=== PATIENT | female | born 1965 | race Caucasian/White ===

== ENCOUNTER 2017-04-20 06:47 | Inpatient (IN) | payer OTHER ==
[~2017-04-20] VITALS: Ht 167.6 cm; Wt 66.7 kg
[2017-04-20] MEDS ORDERED: THROMBIN 5,000 UNIT VIAL TP ONE (06:55)
[2017-04-20] MEDS ORDERED: BACITRACIN 50,000 UNIT ONE (06:55)
[2017-04-20] MEDS ORDERED: BUPIVACAINE/PF-EPI 0.5% 1:200K ONE (06:55)
[2017-04-20] MEDS ORDERED: LIDOCAINE 1%, 2ML ONE (07:07)
[2017-04-20] MEDS ORDERED: LACTATED RINGERS 1,000 ML IV SCH (07:12)
[2017-04-20] MEDS ORDERED: LIDOCAINE 1%, 2ML SQ PRN (08:00)
[2017-04-20] MEDS ORDERED: GADOBUTROL 7.5 MMOL/7.5 ML PFS ONE (08:28)
[2017-04-20] MEDS ORDERED: PROGESTERONE CREAM TP (08:55)
[2017-04-20] MEDS ORDERED: MULT-208 PO (08:55)
[2017-04-20] MEDS ORDERED: FEXO60TA24 PO (08:55)
[2017-04-20] MEDS ORDERED: ACET325T14 PO (08:55)
[2017-04-20] MEDS ORDERED: DEXAMETHASONE PO (08:55)
[2017-04-20] MEDS ORDERED: IBUP200T5 PO (08:55)
[2017-04-20] MEDS ORDERED: FLUT9.9S INH (08:55)
[2017-04-20 08:58] VITALS: BP 137/85
[2017-04-20] MEDS ORDERED: ALBU18HF INH (09:22)
[2017-04-20] MEDS ORDERED: FENTANYL PF 250 MCG/5ML ONE (09:39)
[2017-04-20] MEDS ORDERED: MIDAZOLAM 1 MG/ML, 2ML ONE (09:39)
[2017-04-20] MEDS ORDERED: PROPOFOL 10 MG/ML, 20ML ONE (09:42)
[2017-04-20] MEDS ORDERED: SUCCINYLCHOLINE 20 MG/ML, 10ML ONE (09:42)
[2017-04-20] MEDS ORDERED: ROCURONIUM 10 MG/ML ONE (09:42)
[2017-04-20] MEDS ORDERED: CEFAZOLIN 1,000 MG ONE (09:42)
[2017-04-20] MEDS ORDERED: ONDANSETRON 2MG/ML, 2ML ONE (09:42)
[2017-04-20] MEDS ORDERED: DEXAMETHASONE 4 MG/ML, 1ML ONE (09:42)
[2017-04-20] MEDS ORDERED: PHENYLEPHRINE 10 MG/ML ONE (09:42)
[2017-04-20] MEDS ORDERED: THROMBIN 20,000 UNIT VIAL TP ONE (10:29)
[2017-04-20] MEDS ORDERED: ONDANSETRON 2MG/ML, 2ML IVPush PRN (11:00)
[2017-04-20] MEDS ORDERED: ALBUTEROL SULFATE 2.5 MG/3 ML NPPB PRN (11:00)
[2017-04-20] MEDS ORDERED: FENTANYL PF 100 MCG/2ML IV PRN (11:00)
[2017-04-20] MEDS ORDERED: PROMETHAZINE 25 MG/ML, 1ML IV PRN (11:00)
[2017-04-20] MEDS ORDERED: hydrALAzine 20 MG/ML, 1ML IV PRN ×2 (11:00→13:00)
[2017-04-20] MEDS ORDERED: HYDROmorphone 1 MG/ML, 1ML IV PRN (11:00)
[2017-04-20] MEDS ORDERED: OXYcodone 5 MG/5 ML ORAL.SOL UDC PO PRN (11:00)
[2017-04-20] MEDS ORDERED: MIDAZOLAM 1 MG/ML, 2ML IV PRN (11:00)
[2017-04-20] MEDS ORDERED: ACETAMINOPHEN 325 MG TABLET PO PRN (11:00)
[2017-04-20] MEDS ORDERED: MEPERIDINE/PF 25MG/0.5ML IVPush PRN (11:00)
[2017-04-20] MEDS ORDERED: LABETALOL 5MG/ML, 20ML IV PRN (11:00)
[2017-04-20] MEDS ORDERED: LEVETIRACETAM 2,000 MG in SODIUM CHLORIDE 0.9% 100 ML IV ONE (12:00)
[2017-04-20] MEDS ORDERED: BACITRACIN OINT 500U/GM, 15 GM ONE (12:20)
[2017-04-20] MEDS ORDERED: MAGNESIUM HYDROXIDE 8%, 30ML UDC PO PRN (13:00)
[2017-04-20] MEDS ORDERED: HYDROcodone/APAP 5/325 TABLET PO PRN (13:00)
[2017-04-20] MEDS ORDERED: ENALAPRILAT 1.25 MG/ML, 2ML IV PRN (13:00)
[2017-04-20] MEDS ORDERED: BISACODYL 10 MG SUPP PR PRN (13:00)
[2017-04-20] MEDS ORDERED: OXYcodone/APAP 5/325MG TABLET PO PRN (13:00)
[2017-04-20] MEDS: NS + 20MEQ KCL 1,000 ML IV SCH (15:27)
[2017-04-20] MEDS: DEXAMETHASONE 4 MG/ML, 1ML IVPush SCH ×2 (15:29→21:07)
[2017-04-20] MEDS: HYDROmorphone 2 MG/ML, 1ML IV PRN ×3 (15:34→23:00)
[2017-04-20] MEDS: CEFAZOLIN PMX 1GM/50ML 50 ML IVPB SCH (18:12)
[2017-04-20] MEDS: ONDANSETRON 2MG/ML, 2ML IV PRN (19:20)
[2017-04-20] MEDS: FAMOTIDINE 20 MG/2 ML IVPush SCH (21:07)
[2017-04-20] MEDS: LEVETIRACETAM 1,000 MG in SODIUM CHLORIDE 0.9% 100 ML IV SCH (22:51)
[2017-04-21] MEDS: CEFAZOLIN PMX 1GM/50ML 50 ML IVPB SCH (01:58)
[2017-04-21] MEDS: HYDROmorphone 2 MG/ML, 1ML IV PRN ×2 (02:04→12:23)
[2017-04-21] MEDS: ONDANSETRON 2MG/ML, 2ML IV PRN ×3 (02:08→16:56)
[2017-04-21] MEDS: DEXAMETHASONE 4 MG/ML, 1ML IVPush SCH ×4 (02:34→20:35)
[2017-04-21 04:42] LABS: BLOOD UREA NITROGEN 14 mg/dL (7-18)
[2017-04-21] MEDS: NS + 20MEQ KCL 1,000 ML IV SCH ×2 (05:37→20:34)
[2017-04-21] MEDS: MULTIVITAMIN 1 TABLET PO SCH (08:29)
[2017-04-21] MEDS: SENNA/DOCUSATE TABLET PO SCH (08:29)
[2017-04-21] MEDS: FAMOTIDINE 20 MG/2 ML IVPush SCH ×2 (08:29→20:35)
[2017-04-21] MEDS: PROGESTERONE TP SCH (09:00)
[2017-04-21] MEDS ORDERED: GADOBUTROL 7.5 MMOL/7.5 ML PFS ONE (11:16)
[2017-04-21] MEDS: LEVETIRACETAM 1,000 MG in SODIUM CHLORIDE 0.9% 100 ML IV SCH ×2 (11:40→22:15)
[2017-04-22] MEDS: DEXAMETHASONE 4 MG/ML, 1ML IVPush SCH ×4 (02:50→20:52)
[2017-04-22 04:34] LABS: BLOOD UREA NITROGEN 11 mg/dL (7-18)
[2017-04-22] MEDS: FAMOTIDINE 20 MG/2 ML IVPush SCH ×2 (08:39→20:52)
[2017-04-22] MEDS: MULTIVITAMIN 1 TABLET PO SCH (08:40)
[2017-04-22] MEDS: SENNA/DOCUSATE TABLET PO SCH (08:40)
[2017-04-22] MEDS: PROGESTERONE TP SCH (08:41)
[2017-04-22] MEDS: ONDANSETRON 2MG/ML, 2ML IV PRN (08:47)
[2017-04-22] MEDS ORDERED: ENALAPRILAT 1.25 MG/ML, 2ML IV PRN (09:00)
[2017-04-22] MEDS ORDERED: hydrALAzine 20 MG/ML, 1ML IV PRN (09:00)
[2017-04-22] MEDS: LEVETIRACETAM 1,000 MG in SODIUM CHLORIDE 0.9% 100 ML IV SCH ×2 (10:49→23:04)
[2017-04-22] MEDS: NS + 20MEQ KCL 1,000 ML IV SCH (10:49)
[2017-04-22 11:24] VITALS: BP 122/74
[2017-04-22 18:37] VITALS: BP 124/70
[2017-04-23] MEDS: NS + 20MEQ KCL 1,000 ML IV SCH
[2017-04-23 00:05] VITALS: BP 117/61
[2017-04-23] MEDS: DEXAMETHASONE 4 MG/ML, 1ML IVPush SCH ×2 (03:00→07:06)
[2017-04-23 03:27] VITALS: BP 118/65
[2017-04-23 06:30] VITALS: BP 118/76
[2017-04-23] MEDS ORDERED: LEVETIRACETAM 500 MG TABLET PO ONE (08:30)
[2017-04-23] MEDS: MULTIVITAMIN 1 TABLET PO SCH (08:46)
[2017-04-23] MEDS: FAMOTIDINE 20 MG/2 ML IVPush SCH (08:46)
[2017-04-23] MEDS: PROGESTERONE TP SCH (08:46)
[2017-04-23] MEDS ORDERED: SENNA/DOCUSATE TABLET PO SCH ×2 (09:00)
[2017-04-23] MEDS ORDERED: LEVE500T53 PO (10:31)
[2017-04-23] MEDS ORDERED: DEXA1TAB5 PO (10:32)
== END 2017-04-23 10:50 | disposition home or self-care (01) | DRG 27 ==
LOC: ORIP 06:47 → EDSTATUS 10:00 → CCU 14:14 → 4NOR 04-22 11:04 → DCLOUNGE 04-23 10:28
PROVIDERS: ADMIT Neurological Surgery; ATTEND Neurological Surgery
PROC: 00B70ZZ Excision of Cerebral Hemisphere, Open Approach (ICD-10-PCS; principal; 2017-04-20 10:00)
DX: D49.6 Neoplasm of unspecified behavior of brain (principal); Z85.820 Personal history of malignant melanoma of skin; Z79.899 Other long term (current) drug therapy; Z82.3 Family history of stroke; Z80.9 Family history of malignant neoplasm, unspecified
CPT/HCPCS: 36415; 70450; 70544; 70553; 80048; 84703; 86850; 86900; 87081; 88112; 88305; 88307; 88331; 88332; 88341; 88342; A9585; C1713; J0690; J1100; J1170; J1953; J2250; J2405; J2704; J3010; J3480; J3490; A4648; C1781; G0461; J0330; J2370; J7120; S0028

== ENCOUNTER → 2017-05-18 | Outpatient (CLI) | payer OTHER ==
[~2017-05-18] MED LIST: ACET325T14 PO; ALBU18HF INH; DEXA1TAB5 PO; DEXAMETHASONE PO; FEXO60TA24 PO; FLUT9.9S INH; IBUP200T5 PO; LEVE500T53 PO; MULT-208 PO; PROGESTERONE CREAM TP
== END | disposition home or self-care (01) ==
LOC: PETCFH 08:53
PROVIDERS: ATTEND Internal Medicine Hematology & Oncology
DX: C71.9 Malignant neoplasm of brain, unspecified (principal)
CPT/HCPCS: 78815; A9552

== ENCOUNTER → 2017-05-19 | Outpatient (CLI) | payer OTHER | END | disposition home or self-care (01) | LOC: CFH 12:46 | PROVIDERS: ATTEND Internal Medicine Hematology & Oncology | DX: N63 Unspecified lump in breast (principal); C71.9 Malignant neoplasm of brain, unspecified; Z85.820 Personal history of malignant melanoma of skin | CPT/HCPCS: 76642; G0204 ==

== ENCOUNTER → 2017-06-16 | Outpatient (CLI) | payer OTHER ==
[~2017-06-16] MED LIST changes: +GADOBUTROL 7.5 MMOL/7.5 ML PFS ONE; +IBUP-1484 PO; -IBUP200T5 PO; +OMNIPAQUE 350 MG/ML, 100ML BOTTLE ONE
== END | disposition home or self-care (01) ==
LOC: CFH 08:09
PROVIDERS: ATTEND Internal Medicine Hematology & Oncology
DX: C79.31 Secondary malignant neoplasm of brain (principal); C78.7 Secondary malignant neoplasm of liver and intrahepatic bile duct; C79.61 Secondary malignant neoplasm of right ovary; C78.6 Secondary malignant neoplasm of retroperitoneum and peritoneum; C43.9 Malignant melanoma of skin, unspecified; I61.1 Nontraumatic intracerebral hemorrhage in hemisphere, cortical; R90.82 White matter disease, unspecified; R59.0 Localized enlarged lymph nodes
CPT/HCPCS: 70553; 71260; 74177; A9585; Q9967

== ENCOUNTER → 2017-09-10 | Outpatient (CLI) | payer OTHER ==
[~2017-09-10] MED LIST changes: +CEPH-368 PO; +DABR75CA PO; -GADOBUTROL 7.5 MMOL/7.5 ML PFS ONE; -OMNIPAQUE 350 MG/ML, 100ML BOTTLE ONE; +ONDA4TAB10 PO; +TRAM2TAB PO
== END | disposition home or self-care (01) ==
LOC: PETCFH 09:49
PROVIDERS: ATTEND Internal Medicine Hematology & Oncology
DX: C71.9 Malignant neoplasm of brain, unspecified (principal); C43.9 Malignant melanoma of skin, unspecified; Z85.820 Personal history of malignant melanoma of skin; R59.9 Enlarged lymph nodes, unspecified
CPT/HCPCS: 78816; A9552

== ENCOUNTER → 2017-11-12 | Outpatient (CLI) | payer OTHER ==
[~2017-11-12] MED LIST changes: +GADOBUTROL 7.5 MMOL/7.5 ML PFS ONE
== END ==
LOC: CFH 08:01
PROVIDERS: ATTEND Nurse Practitioner Family
DX: R59.9 Enlarged lymph nodes, unspecified (principal); Z85.820 Personal history of malignant melanoma of skin; C79.31 Secondary malignant neoplasm of brain
CPT/HCPCS: 70553; A9585

== ENCOUNTER → 2017-12-14 | Outpatient (CLI) | payer OTHER ==
[~2017-12-14] MED LIST changes: -GADOBUTROL 7.5 MMOL/7.5 ML PFS ONE
== END | disposition home or self-care (01) ==
LOC: PETCFH 07:33
PROVIDERS: ATTEND Internal Medicine Hematology & Oncology
DX: R91.8 Other nonspecific abnormal finding of lung field (principal); R59.9 Enlarged lymph nodes, unspecified; C71.9 Malignant neoplasm of brain, unspecified; Z85.820 Personal history of malignant melanoma of skin
CPT/HCPCS: 78815; A9552

== ENCOUNTER → 2018-01-11 | Outpatient (CLI) | payer OTHER ==
[~2018-01-11] MED LIST changes: +GADOBUTROL 7.5 MMOL/7.5 ML VIAL ONE
== END | disposition home or self-care (01) ==
LOC: CFH 12:30
PROVIDERS: ATTEND Radiology Radiation Oncology
DX: C79.31 Secondary malignant neoplasm of brain (principal); C43.59 Malignant melanoma of other part of trunk; G93.89 Other specified disorders of brain
CPT/HCPCS: 70553; A9585

== ENCOUNTER → 2018-03-16 | Outpatient (CLI) | payer OTHER | END | disposition home or self-care (01) | LOC: CFH 08:13 | PROVIDERS: ATTEND Radiology Radiation Oncology | DX: C79.31 Secondary malignant neoplasm of brain (principal); C43.59 Malignant melanoma of other part of trunk | CPT/HCPCS: 70553; A9585 ==

== ENCOUNTER → 2018-03-16 | Outpatient (CLI) | payer OTHER ==
[~2018-03-16] MED LIST changes: -GADOBUTROL 7.5 MMOL/7.5 ML VIAL ONE
== END | disposition home or self-care (01) ==
LOC: PETCFH 08:11
PROVIDERS: ATTEND Internal Medicine Hematology & Oncology
DX: C71.9 Malignant neoplasm of brain, unspecified (principal); R91.1 Solitary pulmonary nodule; Z85.820 Personal history of malignant melanoma of skin
CPT/HCPCS: 78816; A9552

== ENCOUNTER → 2018-03-17 | Outpatient (CLI) | payer OTHER | END | disposition home or self-care (01) | LOC: ROC 08:03 | PROVIDERS: ATTEND Radiology Radiation Oncology | DX: C43.59 Malignant melanoma of other part of trunk (principal); C79.51 Secondary malignant neoplasm of bone | CPT/HCPCS: 99213; G0463 ==

== ENCOUNTER → 2018-05-19 | Outpatient (CLI) | payer OTHER | END | disposition home or self-care (01) | LOC: ROC 08:03 | PROVIDERS: ATTEND Radiology Radiation Oncology | DX: C43.59 Malignant melanoma of other part of trunk (principal); C79.31 Secondary malignant neoplasm of brain; C79.2 Secondary malignant neoplasm of skin | CPT/HCPCS: 99213; G0463 ==

== ENCOUNTER → 2018-06-16 | Outpatient (CLI) | payer OTHER | END | disposition home or self-care (01) | LOC: PETCFH 07:22 | PROVIDERS: ATTEND Internal Medicine Hematology & Oncology | DX: C71.9 Malignant neoplasm of brain, unspecified (principal); R59.9 Enlarged lymph nodes, unspecified; Z85.820 Personal history of malignant melanoma of skin; Z86.718 Personal history of other venous thrombosis and embolism | CPT/HCPCS: 78816; A9552 ==

== ENCOUNTER → 2018-08-16 | Outpatient (CLI) | payer OTHER ==
[~2018-08-16] MED LIST changes: +GADOBUTROL 7.5 MMOL/7.5 ML PFS ONE
== END | disposition home or self-care (01) ==
LOC: CFH 09:54
PROVIDERS: ATTEND Radiology Radiation Oncology
DX: G93.89 Other specified disorders of brain (principal); C79.31 Secondary malignant neoplasm of brain; C79.2 Secondary malignant neoplasm of skin; C43.59 Malignant melanoma of other part of trunk
CPT/HCPCS: 70553; A9585

== ENCOUNTER → 2018-08-18 | Outpatient (CLI) | payer OTHER ==
[~2018-08-18] MED LIST changes: -GADOBUTROL 7.5 MMOL/7.5 ML PFS ONE
== END | disposition home or self-care (01) ==
LOC: ROC 07:55
PROVIDERS: ATTEND Radiology Radiation Oncology
DX: Z08 Encounter for follow-up examination after completed treatment for malignant neoplasm (principal); C79.31 Secondary malignant neoplasm of brain; C43.59 Malignant melanoma of other part of trunk
CPT/HCPCS: 99212; G0463

== ENCOUNTER 2018-08-25 21:08 | Inpatient (IN) | payer OTHER ==
[~2018-08-25] VITALS: Ht 167.6 cm; Wt 69.0 kg
[2018-08-25] MEDS ORDERED: LORA10TA72 PO (21:27)
[2018-08-25] MEDS ORDERED: ACET325T14 PO (21:27)
[2018-08-25] MEDS ORDERED: IBUP-1623 PO (21:34)
[2018-08-25] MEDS ORDERED: ACET-1600 PO (21:34)
[2018-08-25] MEDS ORDERED: LEVETIRACETAM 1,000 MG in SODIUM CHLORIDE 0.9% 100 ML IV ONE (22:30)
[2018-08-25] MEDS ORDERED: BISACODYL 10 MG SUPP PR PRN (23:00)
[2018-08-25] MEDS ORDERED: LORATADINE 10 MG TABLET PO PRN (23:00)
[2018-08-25] MEDS ORDERED: POLYETHYLENE GLYCOL 17 GM PACKET PO PRN (23:00)
[2018-08-25] MEDS ORDERED: ACETAMINOPHEN 325 MG TABLET PO PRN (23:00)
[2018-08-25] MEDS ORDERED: GADOBUTROL 7.5 MMOL/7.5 ML PFS ONE (23:05)
[2018-08-26 00:01] VITALS: BP 136/64
[2018-08-26] MEDS: DEXAMETHASONE 4 MG/ML, 1ML IVPush SCH ×5 (00:42→22:57)
[2018-08-26] MEDS: SODIUM CHLORIDE FLUSH 10ML SYR IVF SCH ×3 (00:43→22:57)
[2018-08-26 00:52] VITALS: BP 136/84
[2018-08-26] MEDS ORDERED: ALBUTEROL SULFATE 2.5 MG/3 ML NPPB PRN (01:00)
[2018-08-26] MEDS ORDERED: FLUTICASONE NASAL SPRAY 16GM NAS PRN (01:00)
[2018-08-26] MEDS: ACETAMINOPHEN 500 MG TABLET PO PRN ×2 (01:40→15:30)
[2018-08-26] MEDS: ONDANSETRON 2MG/ML, 2ML IVPush PRN ×2 (01:40→08:12)
[2018-08-26 04:43] LABS: BASOPHILS # (AUTO) 0.01 x10^3/uL (0-0.1); BASOPHILS % (AUTO) 0 % (0-1); EOSINOPHILS % (AUTO) 0 % (1-7); LYMPHOCYTES % (AUTO) 9 % (22-44); MD NO; MEAN CORPUSCULAR HEMOGLOBIN 31.5 pg (27.0-34.8); MEAN CORPUSCULAR HGB CONC 33.9 g/dL (32.4-35.8); MEAN CORPUSCULAR VOLUME 92.9 fL (80-100); MEAN PLATELET VOLUME 7.6 fL (7.4-10.4); MONOCYTES # (AUTO) 0.04 x10^3/uL (0.2-0.8); MONOCYTES % (AUTO) 1 % (2-9); NEUTROPHILS # (AUTO) 4.18 x10^3/uL (1.8-6.8); NEUTROPHILS % (AUTO) 90 % (42-75); PLATELET COUNT 451 x10^3/uL (130-400); RED BLOOD COUNT 4.77 x10^6/uL (3.82-5.3); RED CELL DISTRIBUTION WIDTH 12.7 % (9.6-15.2)
[2018-08-26 04:56] LABS: ALANINE AMINOTRANSFERASE 97 U/L (12-78); ALBUMIN 3.7 g/dL (3.4-5.0); ANION GAP 9 mmol/L (5-15); CALCIUM 9.2 mg/dL (8.5-10.1); CHLORIDE 111 mmol/L (98-107); CREATININE 0.68 mg/dL (0.55-1.02)
[2018-08-26 04:58] LABS: ALKALINE PHOSPHATASE 88 U/L (45-117); BILIRUBIN,TOTAL 0.4 mg/dL (0.2-1.0)
[2018-08-26] MEDS: MULTIVITAMIN 1 TABLET PO SCH (09:00)
[2018-08-26] MEDS: SENNA/DOCUSATE TABLET PO SCH (09:00)
[2018-08-27] MEDS: DEXAMETHASONE 4 MG/ML, 1ML IVPush SCH ×3 (05:07→18:37)
[2018-08-27] MEDS: SODIUM CHLORIDE FLUSH 10ML SYR IVF SCH ×2 (09:00→19:24)
[2018-08-27] MEDS: SENNA/DOCUSATE TABLET PO SCH (09:00)
[2018-08-27] MEDS: MULTIVITAMIN 1 TABLET PO SCH (09:25)
[2018-08-27 11:48] VITALS: BP 103/54
[2018-08-27] MEDS: ONDANSETRON 2MG/ML, 2ML IVPush PRN (12:14)
[2018-08-27] MEDS ORDERED: DEXAMETHASONE 4 MG/ML, 1ML IVPush SCH (13:00)
[2018-08-27 14:00] VITALS: BP 105/52
[2018-08-27] MEDS: ACETAMINOPHEN 500 MG TABLET PO PRN (16:33)
[2018-08-27 19:25] VITALS: BP 110/60
[2018-08-28] MEDS: DEXAMETHASONE 4 MG/ML, 1ML IVPush SCH ×4 (00:46→19:16)
[2018-08-28 01:10] VITALS: BP 117/67
[2018-08-28 05:07] LABS: MEAN CORPUSCULAR HEMOGLOBIN 31.5 pg (27.0-34.8); MEAN CORPUSCULAR HGB CONC 33.8 g/dL (32.4-35.8); MEAN CORPUSCULAR VOLUME 93.2 fL (80-100); PLATELET COUNT 440 x10^3/uL (130-400); RED BLOOD COUNT 4.83 x10^6/uL (3.82-5.3); RED CELL DISTRIBUTION WIDTH 13.1 % (9.6-15.2)
[2018-08-28 05:11] LABS: ANION GAP 7 mmol/L (5-15); CHLORIDE 108 mmol/L (98-107)
[2018-08-28 05:13] LABS: CREATININE 0.77 mg/dL (0.55-1.02)
[2018-08-28 05:45] LABS: BASOPHILS % (AUTO) 0 % (0-1); EOSINOPHILS % (AUTO) 0 % (1-7); LYMPHOCYTES # (AUTO) 0.49 x10^3/uL (1-3.4); LYMPHOCYTES % (AUTO) 6 % (22-44); MD SCAN; MONOCYTES # (AUTO) 0.21 x10^3/uL (0.2-0.8); MONOCYTES % (AUTO) 3 % (2-9); NEUTROPHILS # (AUTO) 7.87 x10^3/uL (1.8-6.8); NEUTROPHILS % (AUTO) 92 % (42-75)
[2018-08-28 07:31] VITALS: BP 121/66
[2018-08-28] MEDS: SENNA/DOCUSATE TABLET PO SCH (09:00)
[2018-08-28] MEDS: SODIUM CHLORIDE FLUSH 10ML SYR IVF SCH ×2 (11:55→19:16)
[2018-08-28] MEDS: MULTIVITAMIN 1 TABLET PO SCH (11:55)
[2018-08-28 13:59] VITALS: BP 118/67
[2018-08-28 19:27] VITALS: BP 130/71
[2018-08-29 01:01] VITALS: BP 127/71
[2018-08-29] MEDS: DEXAMETHASONE 4 MG/ML, 1ML IVPush SCH ×4 (01:04→19:47)
[2018-08-29] MEDS: MULTIVITAMIN 1 TABLET PO SCH (08:16)
[2018-08-29] MEDS: SENNA/DOCUSATE TABLET PO SCH (08:17)
[2018-08-29] MEDS: SODIUM CHLORIDE FLUSH 10ML SYR IVF SCH ×2 (08:24→21:00)
[2018-08-29 09:52] VITALS: BP 100/58
[2018-08-29 15:23] VITALS: BP 131/73
[2018-08-29] MEDS: DIPHENHYDRAMINE/ZINC CRM 2%, 30GM TP PRN (16:52)
[2018-08-29 20:48] VITALS: BP 117/63
[2018-08-30] MEDS: DEXAMETHASONE 4 MG/ML, 1ML IVPush SCH ×4 (01:01→19:55)
[2018-08-30 01:13] VITALS: BP 135/68
[2018-08-30 04:33] LABS: BASOPHILS % (AUTO) 0 % (0-1); EOSINOPHILS % (AUTO) 0 % (1-7); LYMPHOCYTES # (AUTO) 0.49 x10^3/uL (1-3.4); LYMPHOCYTES % (AUTO) 6 % (22-44); MD NO; MEAN CORPUSCULAR HEMOGLOBIN 31.3 pg (27.0-34.8); MEAN CORPUSCULAR HGB CONC 33.6 g/dL (32.4-35.8); MONOCYTES # (AUTO) 0.24 x10^3/uL (0.2-0.8); MONOCYTES % (AUTO) 3 % (2-9); NEUTROPHILS # (AUTO) 7.03 x10^3/uL (1.8-6.8); NEUTROPHILS % (AUTO) 91 % (42-75); PLATELET COUNT 382 x10^3/uL (130-400); RED BLOOD COUNT 4.76 x10^6/uL (3.82-5.3); RED CELL DISTRIBUTION WIDTH 13.2 % (9.6-15.2)
[2018-08-30 04:47] LABS: CHLORIDE 106 mmol/L (98-107)
[2018-08-30 05:03] LABS: ANION GAP 9 mmol/L (5-15); CALCIUM 8.6 mg/dL (8.5-10.1); CREATININE 0.71 mg/dL (0.55-1.02)
[2018-08-30 07:09] VITALS: BP 119/68
[2018-08-30] MEDS: SODIUM CHLORIDE FLUSH 10ML SYR IVF SCH ×2 (07:42→19:55)
[2018-08-30] MEDS: SENNA/DOCUSATE TABLET PO SCH (08:13)
[2018-08-30] MEDS: MULTIVITAMIN 1 TABLET PO SCH (08:13)
[2018-08-30] MEDS ORDERED: DEXA4TAB66 PO (12:49)
[2018-08-30 14:03] VITALS: BP 135/73
[2018-08-30 19:17] VITALS: BP 126/89
[2018-08-31] MEDS: DEXAMETHASONE 4 MG/ML, 1ML IVPush SCH ×2 (02:12→07:49)
[2018-08-31 03:03] VITALS: BP 126/66
[2018-08-31 07:17] VITALS: BP 115/63
[2018-08-31] MEDS: DIPHENHYDRAMINE/ZINC CRM 2%, 30GM TP PRN (07:34)
[2018-08-31] MEDS: MULTIVITAMIN 1 TABLET PO SCH (07:49)
[2018-08-31] MEDS: SODIUM CHLORIDE FLUSH 10ML SYR IVF SCH ×2 (07:49→19:53)
[2018-08-31] MEDS: SENNA/DOCUSATE TABLET PO SCH (09:00)
[2018-08-31 13:12] VITALS: BP 117/71
[2018-08-31] MEDS: DEXAMETHASONE 4 MG TABLET PO SCH ×2 (15:42→19:52)
[2018-08-31 19:28] VITALS: BP 135/67
[2018-09-01 02:55] VITALS: BP 126/76
[2018-09-01] MEDS: DEXAMETHASONE 4 MG TABLET PO SCH ×3 (03:57→15:35)
[2018-09-01 07:01] VITALS: BP 122/77
[2018-09-01] MEDS: MULTIVITAMIN 1 TABLET PO SCH (08:46)
[2018-09-01] MEDS: SODIUM CHLORIDE FLUSH 10ML SYR IVF SCH ×2 (08:46→21:00)
[2018-09-01] MEDS: SENNA/DOCUSATE TABLET PO SCH (08:47)
[2018-09-01 14:33] VITALS: BP 127/75
[2018-09-01 20:11] VITALS: BP 121/64
[2018-09-01] MEDS: DIPHENHYDRAMINE/ZINC CRM 2%, 30GM TP PRN (21:58)
[2018-09-02 03:17] VITALS: BP 136/72
[2018-09-02 07:28] VITALS: BP 120/66
[2018-09-02] MEDS: SODIUM CHLORIDE FLUSH 10ML SYR IVF SCH ×2 (10:47→22:38)
[2018-09-02] MEDS: LORazepam 2 MG/ML, 1ML IVPush PRN ×2 (14:10→18:32)
[2018-09-02] MEDS ORDERED: HALOPERIDOL 5 MG/ML IM PRN (14:30)
[2018-09-02] MEDS: MORPHINE SULFATE 4 MG/ML, 1ML IVPush PRN (22:38)
[2018-09-03] MEDS: LORazepam 2 MG/ML, 1ML IVPush PRN ×2 (04:17→14:27)
[2018-09-03] MEDS: MORPHINE SULFATE 4 MG/ML, 1ML IVPush PRN ×3 (06:12→17:16)
[2018-09-03] MEDS: SODIUM CHLORIDE FLUSH 10ML SYR IVF SCH ×2 (09:41→19:36)
[2018-09-04] MEDS: LORazepam 2 MG/ML, 1ML IVPush PRN ×3 (00:19→20:10)
[2018-09-04] MEDS: SODIUM CHLORIDE FLUSH 10ML SYR IVF SCH (09:12)
[2018-09-04] MEDS: MORPHINE SULFATE 4 MG/ML, 1ML IVPush PRN ×3 (09:25→20:10)
[2018-09-04] MEDS ORDERED: SCOPOLAMINE PATCH, 1.5MG PATCH.TD72 TD SCH (12:00)
[2018-09-05] MEDS: MORPHINE SULFATE 4 MG/ML, 1ML IVPush PRN ×8 (00:11→22:40)
[2018-09-05] MEDS: LORazepam 2 MG/ML, 1ML IVPush PRN ×8 (00:11→22:40)
[2018-09-05] MEDS: SODIUM CHLORIDE FLUSH 10ML SYR IVF SCH ×3 (00:11→20:45)
[2018-09-05] MEDS: ARTIFICIAL TEARS 15 DROP/ML BOTTLE EACHEYE PRN ×2 (13:34→20:29)
[2018-09-06] MEDS: LORazepam 2 MG/ML, 1ML IVPush PRN (01:37)
[2018-09-06] MEDS: MORPHINE SULFATE 4 MG/ML, 1ML IVPush PRN (01:37)
[2018-09-06] MEDS: ARTIFICIAL TEARS 15 DROP/ML BOTTLE EACHEYE PRN (01:42)
== END 2018-09-06 04:55 | disposition expired | DRG 64 ==
LOC: ED 22:31 → EDIP 22:46 → 3NW 23:43 → CCU 08-26 01:25 → 3NW 08-27 11:30
PROVIDERS: ADMIT Hospitalist; ATTEND Hospitalist
DX: I61.9 Nontraumatic intracerebral hemorrhage, unspecified (principal); G93.41 Metabolic encephalopathy; G93.6 Cerebral edema; C79.31 Secondary malignant neoplasm of brain; G81.94 Hemiplegia, unspecified affecting left nondominant side; C43.4 Malignant melanoma of scalp and neck; J45.909 Unspecified asthma, uncomplicated; W01.0XXA Fall on same level from slipping, tripping and stumbling without subsequent striking against object, initial encounter; Y93.E1 Activity, personal bathing and showering; Y92.091 Bathroom in other non-institutional residence as the place of occurrence of the external cause; Y99.8 Other external cause status; Z92.21 Personal history of antineoplastic chemotherapy; Z92.3 Personal history of irradiation; Z66 Do not resuscitate; Z51.5 Encounter for palliative care
CPT/HCPCS: 36415; 70553; 80048; 80053; 83735; 84100; 85025; 87081; 99285; A9585; G0378; J1100; J1953; J2405; J2060